=== PATIENT | female | born 1990 | race Hispanic/Latino ===

== ENCOUNTER 2019-04-16 20:29 | Emergency (ER) | payer MEDICAID, OTHER ==
[2019-04-16] MEDS ORDERED: ONDANSETRON ODT 4 MG TAB ONE (20:37)
[2019-04-16] MEDS ORDERED: ACETAMINOPHEN EXTRA STRENGTH 500 MG TABLET ONE (21:06)
[2019-04-16] MEDS ORDERED: SIMETHICONE 80 MG TAB.CHEW ONE (22:18)
[2019-04-16] MEDS ORDERED: DICYCLOMINE HCL 20 MG TAB ONE (22:19)
== END 2019-04-16 23:28 | disposition home or self-care (01) ==
LOC: EDH 20:29
DX: K52.9 Noninfective gastroenteritis and colitis, unspecified (principal); R50.9 Fever, unspecified